=== PATIENT | male | born 1970 | race Caucasian/White ===

== ENCOUNTER 2025-04-02 10:38 | Emergency (ER) | payer MEDICARE, MEDICAID, SELFPAY ==
[2025-04-02 10:39] VITALS: BP 207/119; BP 209/110; PULSE 76; PULSE 78; RESP 14; RESP 18; TEMP 36.6; O2SAT 98
--- NOTE | 2025-04-02 10:43 | ED.RN ---
pt getting heated in triage, rambling about mandaeism. arguing with the HRO. youre not fucking taking my blood, it's against my mandaeism. dont touch me with no fucking need. pt continues to ramble about mandaeism as he is taken back to the room.
--- NOTE | 2025-04-02 10:43 | ED.RN ---
pt getting heated in triage, rambling about mu-ism. arguing with the HRO. youre not fucking taking my blood, it's against my mu-ism. dont touch me with no fucking need. pt continues to ramble about mu-ism as he is taken back to the room.
--- NOTE | 2025-04-02 11:15 | EX.ED.VIS.PS ---
HPI <Dr. 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 Patient was brought in by police. Patient states that he feels fine. Patient states that he was talked to the other people because police and EMS. Patient states that it was all on the camera. Patient denies any thoughts of suicide or homicide. Patient denies any chest pain or shortness of breath. Patient denies any nausea or vomiting. PFSH <Dr. Saul Miramontes DO - Last Filed: 04/03/25 07:15> PFSH Allergy/AdvReac Type Severity Reaction Status Date / Time fish derived (seafood - Allergy UNKNOWN Verified 04/02/25 10:39 derived) Surgical History unable to obtain Social History Smoking Status: Unknown if ever smoked ROS <Dr. Saul Miramontes DO - Last Filed: 04/03/25 07:15> ROS ED Constitutional Constitutional ED: Denies chills or fever(s) Eyes Eyes: Denies blurry vision or change in vision ENT ENT ED: Denies rhinorrhea or sore throat Cardiovascular Cardiovascular: Denies chest pain or palpitations Respiratory/Chest Respiratory/Chest: Denies cough or dyspnea Gastrointestinal Gastrointestinal: Denies nausea or vomiting Genitourinary Genitourinary ED: Denies dysuria or hematuria Musculoskeletal Musculoskeletal: Denies back pain or neck pain Integumentary Denies abscess or rash Neurologic Neurologic: Denies headache(s) or weakness Allergic/Immunologic Allergic/Immunologic ED: Denies mouth swelling or urticaria EXAM <Dr. Saul Miramontes DO - Last Filed: 04/03/25 07:15> Physical Exam Const Vital Signs: 04/02/25 10:39 04/02/25 10:39 04/02/25 19:49 Temperature 98 F Temperature Source Temporal Pulse Rate 76 78 74 Respiratory Rate 18 14 18 Blood Pressure 207/119 H 209/110 H 165/90 H Blood Pressure Mean 148 143 115 Pulse Ox 98 98 100 Oxygen Delivery Method Room Air Room Air Room Air 04/02/25 20:51 Temperature 98.0 F Temperature Source Pulse Rate 75 Respiratory Rate 18 Blood Pressure 166/90 H Blood Pressure Mean 115 Pulse Ox 100 Oxygen Delivery Method Positive well nourished and well developed General Appearance ED: well developed and NAD HEENT Reports moist mucous membranes normocephalic and atraumatic Neck supple and no JVD Resp normal respiratory effort and clear to auscultation bilaterally Cardio Rate: regular rate Rhythm: regular rhythm GI non-tender and non-distended Palpation: soft Neuro oriented x3, CN's II-XII intact bilaterally and no sensory deficits noted [place] Coma Scale: document GCS findings Spontaneous Obeys Commands Oriented 15 Sensorium / Orientation: alert Motor Exam: strength 5/5 throughout and muscle tone normal throughout Psych Appearance: appropriate Activity / Motor Behavior: psychomotor agitation, fidgetting and disorganized Speech: excessive and rapid Mood & Affect: elevated mood and anxious Thought Process: disorganized and flight of ideas Thought Content: delusion(s) <Dr. Oleksandr Morrow MD - Last Filed: 04/02/25 23:53> Physical Exam Const Vital Signs: 04/02/25 10:39 04/02/25 10:39 04/02/25 19:49 Temperature 98 F Temperature Source Temporal Pulse Rate 76 78 74 Respiratory Rate 18 14 18 Blood Pressure 207/119 H 209/110 H 165/90 H Blood Pressure Mean 148 143 115 Pulse Ox 98 98 100 Oxygen Delivery Method Room Air Room Air Room Air 04/02/25 20:51 Temperature 98.0 F Temperature Source Pulse Rate 75 Respiratory Rate 18 Blood Pressure 166/90 H Blood Pressure Mean 115 Pulse Ox 100 Oxygen Delivery Method Neuro [place] Coma Scale: document GCS findings 15 MDM <Dr. Saul Miramontes DO - Last Filed: 04/03/25 07:15> MDM MDM Narrative Medical decision making narrative: Medical screening labs will be obtained. CBC will be obtained to assess for leukocytosis and anemia. Basic metabolic profile will be obtained to assess for electrolyte abnormality renal function. Serum alcohol level will be obtained to assess for alcohol intoxication. Urine drug screen will be obtained to assess for substance abuse. Lab Data Attestation: I reviewed the patient's lab results. Lab results narrative: CBC was reviewed. There is a mild leukocytosis of 12.0. The remainder is within normal limits. Basic metabolic profile was reviewed and was essentially within normal limits. Serum alcohol level was reviewed and was less than 10.1. Urine drug screen was reviewed and was positive for cannabinoids. Labs: Laboratory Results - last 24 hr 04/02/25 10:50 WBC 12.0 H RBC 5.13 Hgb 14.8 Hct 45.2 MCV 88.1 MCH 28.8 MCHC 32.7 RDW Std Deviation 45.6 H RDW Coeff of Geraldine 14.1 Plt Count 257 MPV 10.1 Immature Gran % (Auto) 0.300 Neut % (Auto) 68.1 Lymph % (Auto) 23.1 [place] % (Auto) 7.8 Eos % (Auto) 0.2 Baso % (Auto) 0.5 Absolute Neuts (auto) 8.2 H Absolute Lymphs (auto) 2.77 Nucleated RBC % 0 Sodium 134 Potassium 3.9 Chloride 96 L Carbon Dioxide 23.7 Anion Gap 14 BUN 13 Creatinine 0.86 Est GFR (MDRD) Non-Af 103 BUN/Creatinine Ratio 15.4 Glucose 113 H Calcium 10.2 Urine Opiates Screen NEGATIVE U Buprenorphine Qual NEGATIVE Ur Oxycodone Screen NEGATIVE Urine Methadone Screen NEGATIVE Urine Fentanyl Screen NEGATIVE Ur Barbiturates Screen NEGATIVE Ur Phencyclidine Scrn NEGATIVE Ur Amphetamines Screen NEGATIVE U Benzodiazepines Scrn NEGATIVE Urine Cocaine Screen NEGATIVE U Cannabinoids Screen PRESUMPTIVE POSITIVE Ethyl Alcohol < 10.1 Treatment and Re-Evaluation Narrative: Patient is medically cleared for psychiatric placement. Care of the patient will be turned over to the oncoming physician pending placement. [place] slip was placed on the chart. <Dr. Oleksandr Morrow MD - Last Filed: 04/02/25 23:53> [facility] Lab Data Labs: Laboratory Results - last 24 hr 04/02/25 10:50 WBC 12.0 H RBC 5.13 Hgb 14.8 Hct 45.2 MCV 88.1 MCH 28.8 MCHC 32.7 RDW Std Deviation 45.6 H RDW Coeff of Geraldine 14.1 Plt Count 257 MPV 10.1 Immature Gran % (Auto) 0.300 Neut % (Auto) 68.1 Lymph % (Auto) 23.1 [place] % (Auto) 7.8 Eos % (Auto) 0.2 Baso % (Auto) 0.5 Absolute Neuts (auto) 8.2 H Absolute Lymphs (auto) 2.77 Nucleated RBC % 0 Sodium 134 Potassium 3.9 Chloride 96 L Carbon Dioxide 23.7 Anion Gap 14 BUN 13 Creatinine 0.86 Est GFR (MDRD) Non-Af 103 BUN/Creatinine Ratio 15.4 Glucose 113 H Calcium 10.2 Urine Opiates Screen NEGATIVE U Buprenorphine Qual NEGATIVE Ur Oxycodone Screen NEGATIVE Urine Methadone Screen NEGATIVE Urine Fentanyl Screen NEGATIVE Ur Barbiturates Screen NEGATIVE Ur Phencyclidine Scrn NEGATIVE Ur Amphetamines Screen NEGATIVE U Benzodiazepines Scrn NEGATIVE Urine Cocaine Screen NEGATIVE U Cannabinoids Screen PRESUMPTIVE POSITIVE Ethyl Alcohol < 10.1 Discharge Plan Triage Chief Complaint: Mental Health ED Provider: Saul Miramontes Dx/Rx/DC Orders Clinical Impression: Schizophrenia, Agitation Primary Care Provider: Care Physician,No Primary Referrals: Care Physician,No Primary [Primary Care Provider] - Print Language: Kyrgyz Disposition Disposition: Psychiatric Hospital or Unit Discharge Location: [facility] Discharge Date/Time: 04/03/25 01:58
[2025-04-02 11:37] LABS: Hematocrit 45.2 % (40-54); Hemoglobin 14.8 g/dL (13.0-16.5); Immature Granulocytes Count 0.040 X10^3/uL (0.0-0.0); Mean Corp Hgb Conc 32.7 g/dL (32-36); Mean Corpuscular Volume 88.1 fL (80-94); Mean Platelet Vol. 10.1 fl (6.2-12.0); NRBC Flagged by Analyzer 0 % (0-5); Platelet Count 257 K/mm3 (150-450); RBC Distribution Width CV 14.1 % (11.6-14.6); RBC Distribution Width SD 45.6 fl (35.1-43.9); Red Blood Count 5.13 M/mm3 (4.6-6.2); White Blood Count 12.0 K/mm3 (4.4-11.0)
--- NOTE | 2025-04-02 11:50 | ED.RN ---
Pt became agitated when attempting to give Lorazepam ordered by . Pt adamantly refuses, states You guys are the crazy ones, you're not putting those drugs in my bo0dy, I'll smoke a joint instead. Pt agrees to stay resting in bed and remain calm and cooperative without being medicated. HRO and security at bedside as well. MD aware.
[2025-04-02 12:08] LABS: Alcohol, Blood (Medical)-Serum < 10.1 mg/dL (<=10.0); Anion Gap 14 (5-15); BUN 13 mg/dL (4-19); BUN/Creat Ratio 15.4 RATIO (10-20); Calcium,Total 10.2 mg/dL (7.6-11.0); Carbon Dioxide 23.7 mmol/L (21.0-32.0); Chloride 96 mmol/L (98-108); Glucose 113 mg/dL (70-99); Potassium 3.9 mmol/L (3.3-5.1)
[2025-04-02 12:31] LABS: Barbiturate Urine NEGATIVE (< 200 ng/mL); Benzodiazepine Urine NEGATIVE (< 200 ng/mL); PCP Urine NEGATIVE (< 25 ng/mL); THC Urine PRESUMPTIVE POSITIVE (< 50 ng/mL)
--- NOTE | 2025-04-02 19:39 | ED.RN ---
attemptx2 to call [facility] and unable to get anyone to brain picker the phone.
--- NOTE | 2025-04-02 19:39 | ED.RN ---
attemptx2 to call [facility] and unable to get anyone to picking tech the phone.
[2025-04-02 19:49] VITALS: BP 165/90; PULSE 74; RESP 18; O2SAT 100
[2025-04-02 20:51] VITALS: BP 166/90; PULSE 75; RESP 18; TEMP 36.7; O2SAT 100
== END 2025-04-03 01:58 ==
PROVIDERS: Emergency Provider Emergency Medicine; Referring Provider Emergency Medicine; Visit Provider Emergency Medicine
DX: F20.9 Schizophrenia, unspecified (principal); F22 Delusional disorders; R45.1 Restlessness and agitation
CPT/HCPCS: 36415; 80048; 80307; 82077; 85025; 99284